=== PATIENT | male | born 1950 | race Caucasian/White ===

== ENCOUNTER 2016-12-17 11:42 | Inpatient (IN) ==
--- NOTE | 2016-12-16 21:56 | Discharge Summary ---
<AraNereyda L - Last Filed: 12/16/16 21:53> Date of Encounter: 12/16/16 - Discharge Diagnosis (1) Arthritis of right hip Priority: Primary Status: Acute (2) Status post total hip replacement, right Priority: Primary Status: Acute (3) HTN (hypertension) Priority: Secondary Status: Acute Qualifiers: Hypertension type: essential hypertension Qualified Code(s): I10 - Essential (primary) hypertension (4) Thyroid disease Priority: Secondary Status: Chronic - Discharge Medications Home Medications: Aspirin Enteric Coated [Aspirin EC] 325 mg PO DAILY #21 tablet. 12/16/16 [Rx] OxyCODONE Immed Rel [Roxicodone 5 MG] 5 - 10 mg PO Q6HR PRN #40 tablet 12/16/16 [Rx] Acitretin [Soriatane] 10 mg PO DAILY 12/17/16 [History] Calcipotriene [Dovonex] 1 appl TP DAILY 12/17/16 [History] Calcium Carbonate [Calcium] 500 mg PO DAILY 12/17/16 [History] Clobetasol Propionate [Temovate] 1 appl TP BID 12/17/16 [History] Cyanocobalamin (Vitamin B-12) [Vitamin B12] 1,000 mcg PO DAILY 12/17/16 [History ] Febuxostat [Uloric] 40 mg PO DAILY 12/17/16 [History] Levothyroxine Sodium [Levoxyl] 75 mcg PO 0630 12/17/16 [History] Rosuvastatin Calcium 10 mg PO DAILY 12/17/16 [History] Telmisartan/Hydrochlorothiazid [Micardis Hct 40-12.5 mg Tablet] 1 tab PO DAILY 12/17/16 [History] Allergies/Adverse Reactions: 3 Allergy/AdvReac Type Severity Reaction Status Date / Time No Known Allergies Allergy Verified 12/17/16 12:22 Primary care physician: Brigid Barrett CNP - Patient Status Disposition: Transfer Inpatient Rehab Fac Condition: Good - Discharge Instructions Follow Up With: Brigid Barrett CNP [Primary Care Provider] - - Hospital Course Hospital course: Mr. Hyatt is a 66 year old male - Time Spent with Patient Total time spent providing and/or coordinating discharge services: <Guru Castillo - Last Filed: 12/19/16 06:41> Date of Encounter: 12/19/16 Time of Encounter: 06:40 - Discharge Diagnosis (1) Arthritis of right hip Priority: Primary Status: Chronic (2) Status post total hip replacement, right Priority: Primary Status: Acute (3) HTN (hypertension) Priority: Secondary Status: Chronic Qualifiers: Hypertension type: essential hypertension Qualified Code(s): I10 - Essential (primary) hypertension (4) Thyroid disease Priority: Secondary Status: Chronic (5) Chronic renal insufficiency, stage I Priority: Secondary Status: Chronic Primary care physician: Brigid Barrett CNP - Patient Status Functional capacity at discharge: uses cane/walker Overall status at discharge: patient is progressing back to baseline - Hospital Course Hospital course: Mr. Hyatt is a 66 year old male Status post right total hip replacement The patient had an uneventful postoperative course. They received antibiotics and physical therapy and were discharged in stable condition. There will follow -up in the office in 2 weeks. - Time Spent with Patient Total time spent providing and/or coordinating discharge services:
--- NOTE | 2016-12-17 13:02 | Anesthesia Evaluation PreOp ---
Date of Encounter: 12/17/16 Time of Encounter: 13:00 - Past History Planned Operation: r renata Cardiac History: HTN, Hyperlipidemia, Other (echo 11/12: ef55, mod as, mild ar, nl rv....john syncope, angina, dyspnea, no bilat le edema, no pnd, no orthopnea ) Pulmonary History: Snore, Other (current URI, rhinorrhea, cough) PREMIUM REPRESENTATIVE History: Denies Any Significant HX Other Medical History: Renal (cri), Thyroid Anesthesia History: No Prior Anesthetic Complications, Past Anesthesia (ltha) Alcohol Use: none Drug use: none Medications and Allergies Aspirin Enteric Coated [Aspirin EC] 325 mg PO DAILY #21 tablet. 12/16/16 [Rx] OxyCODONE Immed Rel [Roxicodone 5 MG] 5 - 10 mg PO Q6HR PRN #40 tablet 12/16/16 [Rx] Acitretin [Soriatane] 10 mg PO DAILY 12/17/16 [History] Calcipotriene [Dovonex] 1 appl TP DAILY 12/17/16 [History] Calcium Carbonate [Calcium] 500 mg PO DAILY 12/17/16 [History] Clobetasol Propionate [Temovate] 1 appl TP BID 12/17/16 [History] Cyanocobalamin (Vitamin B-12) [Vitamin B12] 1,000 mcg PO DAILY 12/17/16 [History ] Febuxostat [Uloric] 40 mg PO DAILY 12/17/16 [History] Levothyroxine Sodium [Levoxyl] 75 mcg PO 0630 12/17/16 [History] Rosuvastatin Calcium 10 mg PO DAILY 12/17/16 [History] Telmisartan/Hydrochlorothiazid [Micardis Hct 40-12.5 mg Tablet] 1 tab PO DAILY 12/17/16 [History] 3 Allergy/AdvReac Type Severity Reaction Status Date / Time No Known Allergies Allergy Verified 12/17/16 12:22 - Meds/Allergy Pre-op Review Medications Reviewed: Yes Allergies Reviewed: Yes Beta Blockers on Current Med List: No Anesthesia Results - Labs Laboratory Tests 12/10/16 12/10/16 12/10/16 16:41 16:41 16:41 Hgb 13.0 Hct 40.8 Plt Count 236 PT 11.4 INR 1.1 APTT 31.0 Sodium 138 Potassium 4.3 Creatinine 1.65 H - Imaging EKG: report reviewed (sr) Anesthesia Exam O2 Sat Height 1.7 m Height 1.7 m Weight 72.575 kg Weight 72.575 kg O2 Sat by Pulse Oximetry 99 Vital Signs Temp Pulse Resp BP Pulse Ox 97.5 F L 84 18 136/77 99 12/17/16 12:30 12/17/16 12:30 12/17/16 12:30 12/17/16 12:30 12/17/16 12:30 Height: 1.7 Weight: 73 NPO (# of Hours): >8 - HEENT Pupil (Motor): Pupils equal, EOMI Mallampati: II Teeth: Poor dentition Oral Opening: Greater than 3 (minimal underbite) - PREMIUM REPRESENTATIVE LOC: Oriented PREMIUM REPRESENTATIVE Motor: Normal RUE, Normal LUE, Normal RLE, Normal LLE, Normal Face PREMIUM REPRESENTATIVE Sensory: Normal: RUE, LUE, RLE, LLE, Face - Cardiac Rhythm: Regular Murmur: None - Pulmonary Breath Sounds: bilateral Clear Respiratory Effort: Symmetrical Anesthesia Assess/Plan ASA Score: 2 (H/P and consent obtained with assistance of business office associate, all questions answered to pt satisfaction...maintain HR no >80 with h/o mod )
[2016-12-17] MEDS ORDERED: Lidocaine -MPF 1% 2 ML VIAL ID ONE (13:03)
[2016-12-17] MEDS ORDERED: CeFAZolin Pre 2,000 MG/100 ML 2,000 MG/100 ML BAG IVPB ONE (13:03)
[2016-12-17] MEDS ORDERED: *HR* FentaNYL (PF) 100 MCG/2 ML VIAL ONE (13:09)
[2016-12-17] MEDS ORDERED: *HR* Midazolam HCl 2 MG/2 ML VIAL ONE (13:09)
[2016-12-17] MEDS ORDERED: *HR* Rocuronium Bromide 50 MG/5 ML VIAL ONE (13:10)
[2016-12-17] MEDS ORDERED: *HR* Propofol 200 MG/20 ML VIAL IVP ONE (13:10)
[2016-12-17] MEDS ORDERED: Lidocaine -MPF 2% 2 ML VIAL ONE (13:10)
[2016-12-17] MEDS ORDERED: Ringers Solution, Lactated 1,000 ML IVC SCH (13:15)
[2016-12-17] MEDS ORDERED: CloNIDine Patch 0.1 MG PATCH (WEEKLY) TD SCH (13:15)
[2016-12-17] MEDS ORDERED: *HR* Labetalol 20 MG/4 ML SYRINGE IVP ONE (13:24)
--- NOTE | 2016-12-17 13:49 | History & Physical Report ---
Date of Encounter: 12/17/16 Time of Encounter: 13:49 24 Hour HP Update - Instructions Instructions: If the History and Physical is less than 30 days old and was completed prior to A.M. admission and or procedure and has NOT been updated on calendar day of procedure please complete this update prior to performing procedure. - Update Patient reports changes in Medical Condition: No Changes in examination, assessment, or condition: No Changes in Medication: No Preop tests/diagnostics Reviewed: Yes Surgery Remains Indicated: Yes Consent for Planned Operative Procedure(s) Verified: Yes - Pre-Operative Checklist Preoperative Checklist Indicated: No Prophylactic Antibiotic Ordered: Yes Is VTE Prophylaxis Indicated?: Yes
[2016-12-17] MEDS ORDERED: Plasma-Lyte A (PH 7.4) 1,000 ML IVC SCH (14:00)
[2016-12-17] MEDS ORDERED: *HR* Phenylephrine 10 MG/ML VIAL ONE (15:09)
[2016-12-17] MEDS ORDERED: Ondansetron 4 MG/2 ML VIAL IVP ONE (15:25)
[2016-12-17] MEDS ORDERED: Ondansetron 4 MG/2 ML VIAL ONE (15:33)
[2016-12-17] MEDS ORDERED: Dexamethasone 4 MG/ML VIAL ONE (15:33)
--- NOTE | 2016-12-17 15:47 | Orthopedic Operative Note ---
Date of procedure: 12/17/16 Pre-op diagnosis: Right hip arthritis Post-op diagnosis: same Procedure: Procedure: Right Total Hip Replacment Estimated blood loss: 200 cc Hardware: Metal and polyethylene replacement. Biomet DM Cup: 54 G7 fin cup Femoral siz 12 e echo full profile lateralized stem Head: +6 head with Miley Procedural Notes: Grade 4 arthritic changes femoral head acetabular socket. Operative procedure: The patient was brought to the operating room and placed on the operating room table. After general anesthesia was administered the patient was placed in the lateral decubitus position with the operative leg up. All pressure points were padded appropriately and the head was stabilized in the neutral position. The operative extremity was prepped and draped in the sterile surgical fashion patient received IV antibiotic prior to skin incision. A standard posterior approach is made to the operative hip, the incision was made through the skin and subcutaneous tissue hemostasis was obtained with Bovie cautery. Using careful sharp dissection the fascia was identified and incised exposing the external rotators. The external rotators were released off the greater trochanter and tagged with #2 FiberWire suture. The capsule was T'd open and the hip was brought into internal rotation. Patient noted to have grade 4 arthritic changes femoral head. The femoral neck cut was made at the appropriate level. An anterior capsulotomy was performed for the anterior retractor. Soft tissues removed from the acetabulum. Patient noted to have grade 4 arthritic changes acetabulum. Acetabulum was first reamed medially, and then reamed in 15 degrees of anteversion and 45 degrees off the horizontal. It was reamed up to the appropriate size 54 The appropriate-sized 54 acetabular cup was impacted in place in 15 degrees of anteversion and 45 degrees off the horizontal. This had good fit and fixation. The hip was brought back in to internal rotation and prepared with the box repairer followed by the canal finder followed by broaching process in 20 degrees anteversion. It was broached up to the appropriate size 12. The femoral implant was impacted in place in 20 degrees of anteversion. Trial reduction found the hip to be stable with +6 head and Miley. The trials were removed and the real implants were impacted in place. The hip was reduced, patient had apparent equal leg lengths. The hip had excellent stability with forward flexion to 90 degrees adduction of 30 degrees and internal rotation of 60 degrees. The hip had no shuck. The hips after 2 minutes with a Betadine saline solution. It was irrigated out with 2 L of pulse irrigation. The hip was closed by the PA. Fascia was closed with a running #2 PDS suture. The deep tissue was irrigated and closed deep with #1 PDS suture superficially with 0 PDS suture and skin was closed with Dermabond and skin kavita. The patient was placed in a sterile dressing and abduction pillow. The patient was extubated and transferred to the recovery room in stable condition. Anesthesia: GETA Surgeon: Guru Castillo Condition: stable Disposition: PACU
[2016-12-17] MEDS ORDERED: *HR* Morphine 10 MG/ML VIAL ONE (16:09)
[2016-12-17] MEDS ORDERED: *HR* HYDROmorphone (PF) 1 MG/ML SYRINGE ONE (16:24)
[2016-12-17] MEDS: *HR* HYDROmorphone (PF) 1 MG/ML SYRINGE IVP PRN ×4 (16:25→16:53)
--- NOTE | 2016-12-17 17:21 | Anesthesia Evaluation Post Op ---
Date of Encounter: 12/17/16 Time of Encounter: 17:20 - Vital Signs Vital Signs: Vital Signs/O2 Sat, Most Current Temp Pulse Resp BP Pulse Ox 98.1 F 77 18 125/69 99 12/17/16 16:15 12/17/16 16:15 12/17/16 16:15 12/17/16 16:15 12/17/16 16:15 - Lungs Lungs: Clear Ascult./Percussion - Airway Airway: Non-obstructed - Cardiovascular Regular Rate - Mental Status Mental Status: Asleep with brisk response to light stimulation - Pain Pain Scale: 5 Pain Scale used: Numeric (1 - 10) - Nausea Vomiting Nausea Vomiting: Not Present - Hydration Hydration: NPO, Has not voided - Discharge PostOp Status: Transfer Patient to floor
[2016-12-17 17:27] LABS: Hematocrit 42.1 % (37.5-50.1); Hemoglobin 13.4 g/dL (12.9-16.9)
[2016-12-17] MEDS ORDERED: *HR* OxyCODONE Immed Rel 5 MG TABLET PO PRN (17:50)
[2016-12-17] MEDS ORDERED: Naloxone 0.4 MG/ML INJ IVP PRN (17:50)
[2016-12-17] MEDS ORDERED: ceFAZolin 2,000 MG in D5% in Water 100 ML IVPB SCH (17:50)
[2016-12-17] MEDS ORDERED: *HR* HYDROmorphone (PF) 1 MG/ML SYRINGE IVP PRN (17:50)
[2016-12-17] MEDS ORDERED: Ondansetron 4 MG/2 ML VIAL IVP PRN (17:50)
[2016-12-17] MEDS ORDERED: *HR* Enoxaparin 30 MG/0.3 ML SYRINGE SQ SCH (18:00)
[2016-12-17] MEDS ORDERED: Ringers Solution, Lactated 1,000 ML ONE (18:02)
[2016-12-17] MEDS: *HR* Enoxaparin 30 MG/0.3 ML SYRINGE SQ SCH (18:17)
[2016-12-17] MEDS: Ringers Solution, Lactated 1,000 ML IVC SCH (18:18)
[2016-12-17] MEDS: Ascorbic Acid 500 MG TABLET PO SCH (18:48)
[2016-12-17] MEDS ORDERED: Sennosides 8.6 MG TABLET PO PRN (21:00)
[2016-12-17] MEDS ORDERED: MOM Conc 10 ML UD.LIQ PO PRN (21:00)
[2016-12-17] MEDS ORDERED: Temazepam 15 MG CAPSULE PO PRN (21:00)
[2016-12-17] MEDS: CLOBETASOL PROPIONATE 15 GM TUBE TP SCH (21:45)
[2016-12-17] MEDS: ceFAZolin 2,000 MG in D5% in Water 100 ML IVPB SCH (23:15)
[2016-12-18] MEDS: *HR* Enoxaparin 30 MG/0.3 ML SYRINGE SQ SCH ×2 (05:53→17:50)
[2016-12-18] MEDS: ceFAZolin 2,000 MG in D5% in Water 100 ML IVPB SCH (05:53)
[2016-12-18 06:04] LABS: Hematocrit 35.5 % (37.5-50.1)
[2016-12-18 06:18] LABS: BUN/Creatinine Ratio 14 (6-26); Blood Urea Nitrogen 20 mg/dL (8-26); Calcium 8.8 mg/dL (8.6-10.8); Carbon Dioxide 21 mEq/L (19-29); Chloride 103 mEq/L (98-109); Glucose 121 mg/dL (70-99); Osmolality,Calculated 278 (280-300); Potassium 4.7 mEq/L (3.5-4.5); Sodium 132 mEq/L (136-145); eGFR For African Americans > 60 (> 60); eGFR For Non-African Americans 50 (> 60)
--- NOTE | 2016-12-18 06:49 | Orthopedics Progress Note ---
Date of Encounter: 12/18/16 Time of Encounter: 06:49 - Assessment and Plan (1) Arthritis of right hip Current Visit: Yes Status: Chronic (2) Status post total hip replacement, right Current Visit: Yes Status: Acute (3) HTN (hypertension) Current Visit: Yes Status: Chronic Qualifiers: Hypertension type: essential hypertension Qualified Code(s): I10 - Essential (primary) hypertension (4) Thyroid disease Current Visit: Yes Status: Chronic Subjective Interval history: Patient was seen this morning doing well without complaints. Afebrile vital signs stable. Operative extremity: Neurovascularly intact Dressing clean dry and intact Calves nontender Assessment and plan: Continue with postoperative care Hematocrit 35 Objective Vital signs: Vital Signs Temp Pulse Resp BP Pulse Ox 12/18/16 03:58 97.6 F 80 17 157/81 100 12/17/16 23:25 97.6 F 97 14 125/84 94 12/17/16 18:30 97.5 F L 81 17 153/91 97 12/17/16 18:10 97.4 F L 84 16 142/86 97 12/17/16 17:15 97.5 F L 74 14 141/77 95 12/17/16 17:05 76 14 131/74 96 12/17/16 16:55 74 14 155/73 96 12/17/16 16:45 97.5 F L 75 16 134/71 98 12/17/16 16:35 74 16 130/74 99 12/17/16 16:25 75 16 134/68 100 12/17/16 16:15 98.1 F 77 18 125/69 99 12/17/16 13:13 97.5 F L 84 18 136/77 99 12/17/16 12:30 97.5 F L 84 18 136/77 99 Intake and Output 12/17/16 12/17/16 12/18/16 15:59 23:59 07:59 Intake Total 220 / 220 Output Total 250 / 250 200 / 200 Balance -30 / -30 -200 / -200 Intake: IV Fluids 100 / 100 Ancef 2,000 MG In 100 / 100 Dextrose 5% 100 ML @ 200 mls/hr IVPB Q8H [facility] Rx#: [id number] Oral 120 / 120 Output: Urine 50 / 50 200 / 200 Estimated Blood Loss 200 / 200 Other: Weight 72.575 kg - Labs CBC & BMP: 12/18/16 05:52 12/18/16 05:52 Labs: Abnormal lab results Hgb 12.0 g/dL (12.9-16.9) L 12/18/16 05:52 Hct 35.5 % (37.5-50.1) L 12/18/16 05:52 Sodium 132 mEq/L (136-145) L 12/18/16 05:52 Potassium 4.7 mEq/L (3.5-4.5) H 12/18/16 05:52 Creatinine 1.42 mg/dL (0.72-1.25) H 12/18/16 05:52 Est GFR (Non-Af Amer) 50 (> 60) L 12/18/16 05:52 Glucose 121 mg/dL (70-99) H 12/18/16 05:52 Calculated Osmolality 278 (280-300) L 12/18/16 05:52 - VTE Documentation of Mechanical Device: Venous foot pump, device Consult Discharge Plan - Plan Referrals: Brigid Barrett, [facility] [Primary Care Provider] -
[2016-12-18] MEDS: Cyanocobalamin (B-12) 1,000 MCG TABLET PO SCH (08:30)
[2016-12-18] MEDS: Multivit/Ca/Min/Fe/FA 1 TAB TABLET PO SCH (08:30)
[2016-12-18] MEDS: *HR* OxyCODONE Immed Rel 5 MG TABLET PO PRN ×2 (08:30→12:32)
[2016-12-18] MEDS: Ascorbic Acid 500 MG TABLET PO SCH ×2 (08:30→17:50)
[2016-12-18] MEDS: hydroCHLOROthiazide 25 MG TABLET PO SCH (08:30)
[2016-12-18] MEDS: Ringers Solution, Lactated 1,000 ML IVC SCH (08:31)
[2016-12-18] MEDS: ACITRETIN 10 MG PO SCH (08:31)
[2016-12-18] MEDS: (Calcipotriene [Dovonex] 1 APPL) TP SCH (08:32)
[2016-12-18] MEDS: (Febuxostat [Uloric] 40 MG) PO SCH (08:32)
[2016-12-18] MEDS ORDERED: [UNRECOGNIZED DRUG - OTHER] PO SCH (09:00)
[2016-12-18] MEDS: CLOBETASOL PROPIONATE 15 GM TUBE TP SCH ×2 (09:12→20:39)
--- NOTE | 2016-12-18 12:23 | Event Note ---
Date of Encounter: 12/18/16 Time of Encounter: 12:23 PCR - Right THR - POD#1 Patient seen at bedside. Family in room to help with interpreting services. Pain control: adequate Participating in PT. All questions and concerns addressed. Educated on use of incentive spirometer, ambulation, and hydration. Patient educated on post-operative restrictions and care. Addressed: Above D/C plan:.[facility]URALI hopper 12/19 or 12/20 pending Auth
--- NOTE | 2016-12-18 12:57 | Physician Discharge Referral ---
ExtendedCare Referral Info Transfer To: [facility] Provider in Charge after Transfer: PCP Institutional Level of Care: Skilled - Diagnosis (1) Arthritis of right hip Priority: Primary Status: Chronic (2) Status post total hip replacement, right Priority: Primary Status: Acute (3) HTN (hypertension) Priority: Secondary Status: Chronic (4) Thyroid disease Priority: Secondary Status: Chronic Expected Duration of Placement: < 30 days Prognosis: Good Aware of Diagnosis: Patient Aware of Prognosis: Patient - Transfer Medications Home Medications: Aspirin Enteric Coated [Aspirin EC] 325 mg PO DAILY #21 tablet. 12/16/16 [Rx] OxyCODONE Immed Rel [Roxicodone 5 MG] 5 - 10 mg PO Q6HR PRN #40 tablet 12/16/16 [Rx] Acitretin [Soriatane] 10 mg PO DAILY 12/17/16 [History] Calcipotriene [Dovonex] 1 appl TP DAILY 12/17/16 [History] Calcium Carbonate [Calcium] 500 mg PO DAILY 12/17/16 [History] Clobetasol Propionate [Temovate] 1 appl TP BID 12/17/16 [History] Cyanocobalamin (Vitamin B-12) [Vitamin B12] 1,000 mcg PO DAILY 12/17/16 [History ] Febuxostat [Uloric] 40 mg PO DAILY 12/17/16 [History] Levothyroxine Sodium [Levoxyl] 75 mcg PO 0630 12/17/16 [History] Rosuvastatin Calcium 10 mg PO DAILY 12/17/16 [History] Telmisartan/Hydrochlorothiazid [Micardis Hct 40-12.5 mg Tablet] 1 tab PO DAILY 12/17/16 [History] Allergies/Adverse Reactions: 3 Allergy/AdvReac Type Severity Reaction Status Date / Time No Known Allergies Allergy Verified 12/17/16 12:22 - Respiratory Orders None Smoking Cessation: Smoking cessation has been advised. For more information, call the [place] Tobacco Quit Line at 7-609-LAMO-NOW. - Ancillary Orders May use pressure relief devices daily prn, May go on CANDIE w/family/respon green party w /meds at nurse discretion PRN, May consult with Dentist, Server Assistant, Edge Dyer PRN - Mobility Orders Chair, Ambulate - Rehabiliation Orders Rehab Potential: Good Rehab Orders: ROM Exercises, Evaluation for Physical Therapy, Evaluation for Occupational Therapy - Treatments List/Other: Opsite dressing, leave intact until first post-operative visit. If dressing becomes >50% saturated, contact office, remove dressing and place appropriate dressing in its place. Do not allow for dressing to get wet. [place] in place, plan to remove at post-operative day #14-16. Precautions x 6 weeks Apply cold therapy wrap 3-6x/day for 20 minutes at a time. Encourage ambulation throughout the day and incentive spirometer 10x/hour. Elevate affected extremity above heart as tolerated. Brace: Wear HIP abduction brace at night x 6 weeks. - Diet Orders Regular CERTIFICATION: I certify that the transfer of the above named patient to an Extended Care Facility is necessary for the continuing treatment of the diagnosis listed. The above information is true and accurate reflection of patient's current condition. Confidential - Redisclosure prohibited without a patient's written consent.
[2016-12-19] MEDS: *HR* OxyCODONE Immed Rel 5 MG TABLET PO PRN ×2 (04:44→14:27)
[2016-12-19] MEDS: *HR* Enoxaparin 30 MG/0.3 ML SYRINGE SQ SCH (06:14)
--- NOTE | 2016-12-19 06:41 | Orthopedics Progress Note ---
Date of Encounter: 12/19/16 Time of Encounter: 06:41 - Assessment and Plan (1) Arthritis of right hip Current Visit: Yes Status: Chronic (2) Status post total hip replacement, right Current Visit: Yes Status: Acute (3) HTN (hypertension) Current Visit: Yes Status: Chronic Qualifiers: Hypertension type: essential hypertension Qualified Code(s): I10 - Essential (primary) hypertension (4) Thyroid disease Current Visit: Yes Status: Chronic (5) Chronic renal insufficiency, stage I Current Visit: Yes Status: Chronic Subjective Interval history: Patient was seen this morning doing well without complaints. Afebrile vital signs stable. Operative extremity: Neurovascularly intact Dressing clean dry and intact Calves nontender Assessment and plan: Continue with postoperative care Hematocrit 35 discharged today Objective Vital signs: Vital Signs Temp Pulse Resp BP Pulse Ox 12/19/16 04:44 86 118/66 12/19/16 00:48 97.6 F 91 18 110/70 100 12/18/16 20:55 98.5 F 102 19 116/69 98 12/18/16 15:12 98.2 F 100 18 130/78 97 12/18/16 12:03 98.0 F 99 18 157/83 99 12/18/16 07:46 97.7 F 81 18 136/85 98 Intake and Output 12/18/16 12/18/16 12/19/16 15:59 23:59 07:59 Intake Total 1120 / 1120 Output Total 450 / 450 250 / 250 Balance 670 / 670 -250 / -250 Intake: IV Fluids 1000 / 1000 Lactated Ringers 1,000 ML 1000 / 1000 @ 75 mls/hr IVC .[id number] [facility] Rx#:[id number] Oral 120 / 120 Output: Urine 450 / 450 250 / 250 Other: Meal Breakfast Percent of Meal Consumed 95% # Voids 1 # Bowel Movements 1 Weight 79.4 kg Patient Weight 12/19/16 23:59 Weight 79.4 kg - Labs CBC & BMP: 12/18/16 05:52 12/18/16 05:52 Labs: Abnormal lab results Hgb 12.0 g/dL (12.9-16.9) L 12/18/16 05:52 Hct 35.5 % (37.5-50.1) L 12/18/16 05:52 Sodium 132 mEq/L (136-145) L 12/18/16 05:52 Potassium 4.7 mEq/L (3.5-4.5) H 12/18/16 05:52 Creatinine 1.42 mg/dL (0.72-1.25) H 12/18/16 05:52 Est GFR (Non-Af Amer) 50 (> 60) L 12/18/16 05:52 Glucose 121 mg/dL (70-99) H 12/18/16 05:52 Calculated Osmolality 278 (280-300) L 12/18/16 05:52 - VTE Documentation of Mechanical Device: Venous foot pump, device Consult Discharge Plan - Plan Referrals: Brigid Barrett, PROSTHETIC TECHNICIAN [Primary Care Provider] -
[2016-12-19 07:18] LABS: Hematocrit 30.1 % (37.5-50.1)
[2016-12-19 07:21] LABS: Hemoglobin 9.8 g/dL (12.9-16.9)
[2016-12-19 07:27] LABS: Calcium 8.9 mg/dL (8.6-10.8); Potassium 3.7 mEq/L (3.5-4.5)
[2016-12-19] MEDS: Multivit/Ca/Min/Fe/FA 1 TAB TABLET PO SCH (08:24)
[2016-12-19] MEDS: Cyanocobalamin (B-12) 1,000 MCG TABLET PO SCH (08:24)
[2016-12-19] MEDS: hydroCHLOROthiazide 25 MG TABLET PO SCH (08:24)
[2016-12-19] MEDS: Ascorbic Acid 500 MG TABLET PO SCH (08:24)
[2016-12-19] MEDS: (Febuxostat [Uloric] 40 MG) PO SCH (08:29)
[2016-12-19] MEDS: ACITRETIN 10 MG PO SCH (08:29)
[2016-12-19] MEDS: CLOBETASOL PROPIONATE 15 GM TUBE TP SCH (08:29)
[2016-12-19] MEDS: (Calcipotriene [Dovonex] 1 APPL) TP SCH (08:29)
[2016-12-19] MEDS ORDERED: 0.9 % Sodium Chloride 500 ML IVC ONE (09:09)
[2016-12-19 14:17] LABS: Albumin 3.1 g/dL (3.5-5.0); Calcium 9.2 mg/dL (8.6-10.8); Potassium 3.7 mEq/L (3.5-4.5)
[2016-12-19 15:46] VITALS: BP 117/66
--- NOTE | 2016-12-19 17:39 | Event Note ---
Date of Encounter: 12/19/16 Time of Encounter: 11:50 PCR - Right THR - POD#2 Patient seen at bedside. Family in room to help with interpreting services. Pain control: adequate Participating in PT. All questions and concerns addressed. Educated on use of incentive spirometer, ambulation, and hydration. Patient educated on post-operative restrictions and care. Discussed renal function panel - repeat renal function panel prior to discharge today - patient has hx of decreased renal function prior to surgery. Addressed: Above D/C plan:.ECF likely today - awaiting auth
== END 2016-12-19 16:54 | DRG 301 ==
LOC: SAMDAY 11:42 → 3NENU 17:54
PROVIDERS: ADMIT Orthopaedic Surgery; ATTEND Orthopaedic Surgery